=== PATIENT | male | born 1940 | race Caucasian/White ===

== ENCOUNTER → 2020-09-19 | Outpatient (CLI) | payer MEDICARE, BC ==
[~2020-09-19] MED LIST: ASPIRIN81 MG PO; AZELASTINE137 MCG/0.; CLARITIN10 M2 PO; FLONASE ALLER15.8 ML; HYDRALAZINE HCL50 MG PO; LANTUS100 UNIT/1 SQ; METOPROLOL TART25 MG PO; NORVASC10 MG PO; NOVOLOG FL100 UNIT/1 INJ; PEPCID20 MG PO; ZOLOFT25 MG PO
[2020-09-19 15:33] LABS: HEMOGLOBIN 11.9 gm/dl (14.0-17.5); RED BLOOD COUNT 4.16 M/UL (4.20-5.50); WHITE BLOOD COUNT 9.9 K/UL (4.5-11.0)
== END ==
LOC: US 13:51
PROVIDERS: Internal Medicine Nephrology
DX: N18.30 Chronic kidney disease, stage 3 unspecified (principal)
CPT/HCPCS: 36415; 80053; 82570; 83970; 84100; 84156; 85027

== ENCOUNTER → 2020-10-24 | Outpatient (CLI) | payer MEDICARE, BC ==
[2020-10-25 08:14] LABS: HBSAG SCREEN Negative (Negative); HCV ANTIBODY <0.1 (0.0-0.9)
[2020-10-25 09:15] LABS: CREATININE, URINE 45.7 mg/dL (Not Estab.)
[2020-10-25 12:15] LABS: COMPLEMENT C3, SERUM 116 mg/dL (82-167); COMPLEMENT C4, SERUM 35 mg/dL (12-38)
[2020-10-25 15:15] LABS: ANTI-DSDNA ANTIBODIES <1 IU/mL (0-9)
[2020-10-25 16:15] LABS: A/G RATIO 1.1 (0.7-1.7); ALPHA-1-GLOBULIN 0.3 g/dL (0.0-0.4); GAMMA GLOBULIN 0.6 g/dL (0.4-1.8); GLOBULIN, TOTAL 2.9 g/dL (2.2-3.9); IMMUNOGLOBULIN A, QN, SERUM 239 mg/dL (61-437); IMMUNOGLOBULIN G, QN, SERUM 605 mg/dL (603-1613); IMMUNOGLOBULIN M, QN, SERUM 44 mg/dL (15-143); M-SPIKE Not Observed g/dL (Not Observed); PROTEIN, TOTAL, SERUM 5.9 g/dL (6.0-8.5)
[2020-10-26 11:14] LABS: ANTIGLOMERULAR BM AB 2 units (0-20)
[2020-10-28 20:11] LABS: ANTIMYELOPEROXIDASE (MPO) ABS <9.0 U/mL (0.0-9.0); ANTIPROTEINASE 3 (PR-3) ABS <3.5 U/mL (0.0-3.5); ATYPICAL PANCA <1:20 titer (Neg:<1:20); CYTOPLASMIC (C-ANCA) <1:20 titer (Neg:<1:20); PERINUCLEAR (P-ANCA) <1:20 titer (Neg:<1:20)
== END ==
LOC: CT 12:02
PROVIDERS: Internal Medicine Nephrology
DX: N18.4 Chronic kidney disease, stage 4 (severe) (principal); N13.30 Unspecified hydronephrosis
CPT/HCPCS: 36415; 80053; 82043; 82570; 82784; 83520; 84155; 84156; 84165; 86038; 86160; 86162; 86225; 86256; 86334; 86803; 87340

== ENCOUNTER → 2020-10-30 | Outpatient (CLI) | payer MEDICARE, BC ==
[2020-10-30 13:28] LABS: URINE TOTAL PROTEIN 367 mg/dl
== END ==
LOC: LAB 12:04
PROVIDERS: Internal Medicine Nephrology
DX: N18.4 Chronic kidney disease, stage 4 (severe) (principal)
CPT/HCPCS: 84156

== ENCOUNTER 2020-12-09 19:03 | Inpatient (IN) | payer MEDICARE, BC ==
[~2020-12-09] VITALS: Ht 165.1 cm; Wt 120.7 kg
[2020-12-09 20:38] LABS: HEMOGLOBIN 10.2 gm/dl (14.0-17.5); RED BLOOD COUNT 3.7 M/UL (4.20-5.50); WHITE BLOOD COUNT 6.9 K/UL (4.5-11.0)
[2020-12-10 04:48] LABS: HEMOGLOBIN 10.5 gm/dl (14.0-17.5); RED BLOOD COUNT 3.69 M/UL (4.20-5.50); WHITE BLOOD COUNT 6.3 K/UL (4.5-11.0)
[2020-12-10] MEDS ORDERED: LANTUS100 UNIT/1 SQ (10:15)
[2020-12-10] MEDS ORDERED: NORVASC10 MG PO (10:15)
[2020-12-10] MEDS ORDERED: ASPIRIN81 MG PO (10:16)
[2020-12-10] MEDS ORDERED: PEPCID20 MG PO (10:17)
[2020-12-10] MEDS ORDERED: HYDRALAZINE HCL50 MG PO (10:17)
[2020-12-10] MEDS ORDERED: CLARITIN10 M2 PO (10:18)
[2020-12-10] MEDS ORDERED: METOPROLOL TART25 MG PO (10:19)
[2020-12-10] MEDS ORDERED: ZOLOFT25 MG PO (10:19)
[2020-12-10] MEDS ORDERED: AZELASTINE137 MCG/0. (19:08)
[2020-12-10] MEDS ORDERED: FLONASE ALLER15.8 ML (19:09)
[2020-12-10] MEDS ORDERED: NOVOLOG FL100 UNIT/1 INJ (19:10)
[2020-12-12 04:11] LABS: HEMOGLOBIN 10.2 gm/dl (14.0-17.5); RED BLOOD COUNT 3.65 M/UL (4.20-5.50)
[2020-12-12 04:12] LABS: WHITE BLOOD COUNT 11.1 K/UL (4.5-11.0)
--- NOTE | 2020-12-13 02:24 | NUR ---
PATIENT REFUSING TO USE BEDSIDE CAMMODE SO THAT HIS HFNC CAN REACH. PATIENT INFORMED THAT HIS OXYGEN DROPS WHEN HE AMBULATE ALL THE WAY TO THE BATHROOM. PATIENT ALERT AND OREINTED VERBALIZED UNDERSTANDING AND CONTINUES TO REFUSE TO USE BSC.
--- NOTE | 2020-12-13 08:20 | NUR ---
0750- OXYGEN SATURATION 85% ON ROOM AIR AT REST.
--- NOTE | 2020-12-14 14:13 | NUR ---
4775- RECEIVED CALL FROM TELE OF OXYGEN READING IN THE 70'S. PATIENT REMOVED ARIVO AT THIS TIME. AIRVO PLACED BACK ON AND OXYGEN SATURATIONS 91%
--- NOTE | 2020-12-14 14:14 | NUR ---
5243- RECEIVED CALL FROM TELE WITH OXYGEN READING IN THE 70S. PATIENT REMOVED AIRVO DEVICE. PLACED BACK ON AND OXYGEN SATURATION 90%
[2020-12-15 11:49] LABS: HEMOGLOBIN 11.5 gm/dl (14.0-17.5)
[2020-12-15 11:52] LABS: RED BLOOD COUNT 4.06 M/UL (4.20-5.50)
--- NOTE | 2020-12-15 12:59 | NUR ---
0874 PT MOVED TO ROOM 2115 FROM PCU FOR INTUBATION, PT VOICED UNDERSTANDING OF NEED TO BE PLACE ON VENT VERBAL PERMISSION OBTAINED., VERBAL CONSENT OBTAINED FOR PLACEMENT OF CVP PLACEMENT., PT INTUBATED WITH A 7.5 MOHAWK ET TUBE SECURED AT 24 AT THE LIP,OG TUBE PLACED, LARA INSERTED WITHOUT DIFFICULTY, CVP PLACED PER DR LOUIE PLACEMENT VERIFIED VIA CHEST XRAY AND AUSCULTATION PT JOSE L WELL
[2020-12-16 05:23] LABS: HEMOGLOBIN 10.7 gm/dl (14.0-17.5); RED BLOOD COUNT 3.8 M/UL (4.20-5.50); WHITE BLOOD COUNT 13.6 K/UL (4.5-11.0)
--- NOTE | 2020-12-16 10:18 | NUR ---
CALLED DR VAUGHN THIS AM AND MADE HIM AWARE OF BUN AND CREAT HE STATES HE WILL BE HERE TO SEE PT LATER NO NEW ORDERS AT THIS THIME STATES HE HAS CHRONIC KIDNEY ISSUES
[2020-12-17 04:33] LABS: WHITE BLOOD COUNT 13.5 K/UL (4.5-11.0)
[2020-12-17 04:34] LABS: HEMOGLOBIN 8.7 gm/dl (14.0-17.5); RED BLOOD COUNT 3.07 M/UL (4.20-5.50)
[2020-12-18 03:57] LABS: RED BLOOD COUNT 2.8 M/UL (4.20-5.50); WHITE BLOOD COUNT 14.3 K/UL (4.5-11.0)
[2020-12-18 08:13] LABS: HBSAG SCREEN Negative (Negative); HEP A AB, IGM Negative (Negative); HEP B CORE AB, IGM Negative (Negative); HEP C VIRUS AB <0.1 (0.0-0.9)
[2020-12-19 05:37] LABS: HEMOGLOBIN 7.9 gm/dl (14.0-17.5); RED BLOOD COUNT 2.77 M/UL (4.20-5.50); WHITE BLOOD COUNT 16.5 K/UL (4.5-11.0)
[2020-12-19 08:24] LABS: HEMOGLOBIN 7.9 gm/dl (14.0-17.5); RED BLOOD COUNT 2.77 M/UL (4.20-5.50); WHITE BLOOD COUNT 18.1 K/UL (4.5-11.0)
[2020-12-20 10:03] LABS: WHITE BLOOD COUNT 21.9 K/UL (4.5-11.0)
[2020-12-20 10:04] LABS: RED BLOOD COUNT 3.21 M/UL (4.20-5.50)
[2020-12-21 06:28] LABS: HEMOGLOBIN 8.1 gm/dl (14.0-17.5); RED BLOOD COUNT 2.95 M/UL (4.20-5.50)
[2020-12-21 06:37] LABS: WHITE BLOOD COUNT 16.4 K/UL (4.5-11.0)
[2020-12-23 05:25] LABS: HEMOGLOBIN 8.8 gm/dl (14.0-17.5); RED BLOOD COUNT 3.16 M/UL (4.20-5.50); WHITE BLOOD COUNT 17.7 K/UL (4.5-11.0)
[2020-12-24 05:57] LABS: HEMOGLOBIN 9.4 gm/dl (14.0-17.5); RED BLOOD COUNT 3.3 M/UL (4.20-5.50)
[2020-12-25 07:51] LABS: HEMOGLOBIN 8.2 gm/dl (14.0-17.5)
[2020-12-25 07:52] LABS: RED BLOOD COUNT 2.92 M/UL (4.20-5.50); WHITE BLOOD COUNT 12.6 K/UL (4.5-11.0)
[2020-12-26 07:54] LABS: HEMOGLOBIN 10.2 gm/dl (14.0-17.5); RED BLOOD COUNT 3.76 M/UL (4.20-5.50); WHITE BLOOD COUNT 18.6 K/UL (4.5-11.0)
[2020-12-27 08:12] LABS: HEMOGLOBIN 8.3 gm/dl (14.0-17.5); WHITE BLOOD COUNT 22.9 K/UL (4.5-11.0)
[2020-12-27 08:18] LABS: RED BLOOD COUNT 3.03 M/UL (4.20-5.50)
--- NOTE | 2020-12-27 08:39 | NUR ---
0721: WHILE AT BEDSIDE THE PATIENT WENT BRADYCARDIC, PULSE WAS PRESENT, THE CRASH CART WAS PULLED INSIDE THE ROOM AND THE PATIENT WAS GIVEN ATROPINE PER DR COLINDRES AT BEDSIDE, THE PATIENT WAS GIVEN EPI, AND WENT INTO [facility] NO PULSE, CPR WAS STARTED, SEE CODE SHEET.
[2020-12-29 10:19] LABS: HEMOGLOBIN 7.5 gm/dl (14.0-17.5); WHITE BLOOD COUNT 22.7 K/UL (4.5-11.0)
[2020-12-29 10:39] LABS: RED BLOOD COUNT 2.65 M/UL (4.20-5.50)
[2020-12-30 05:54] LABS: RED BLOOD COUNT 2.38 M/UL (4.20-5.50); WHITE BLOOD COUNT 14.9 K/UL (4.5-11.0)
[2020-12-30 05:55] LABS: HEMOGLOBIN 6.7 gm/dl (14.0-17.5)
[2020-12-31 04:48] LABS: HEMOGLOBIN 7.5 gm/dl (14.0-17.5); WHITE BLOOD COUNT 12.9 K/UL (4.5-11.0)
[2020-12-31 04:58] LABS: RED BLOOD COUNT 2.65 M/UL (4.20-5.50)
[2020-12-31 07:42] LABS: HEMOGLOBIN 7.9 gm/dl (14.0-17.5); RED BLOOD COUNT 2.84 M/UL (4.20-5.50)
[2020-12-31 07:49] LABS: WHITE BLOOD COUNT 17.5 K/UL (4.5-11.0)
[2020-12-31 16:51] LABS: HEMOGLOBIN 8.8 gm/dl (14.0-17.5)
[2021-01-01 03:56] LABS: RED BLOOD COUNT 2.03 M/UL (4.20-5.50); WHITE BLOOD COUNT 12.2 K/UL (4.5-11.0)
[2021-01-01 03:58] LABS: HEMOGLOBIN 5.9 gm/dl (14.0-17.5)
--- NOTE | 2021-01-02 03:09 | NUR ---
01/01/211914 - NOTIFIED JAGJIT THAT FAMILY WISHES TO WITHDRAW CARE IN THE AM. OK TO WITHDRAW TREATMENT WHEN FAMILY IS READY PER JAGJIT REP WILL. CALL WITH CARDIAC TIME OF PER JAGJIT'S REQUEST.
[2021-01-02 07:11] LABS: WHITE BLOOD COUNT 12.9 K/UL (4.5-11.0)
[2021-01-02 07:29] LABS: HEMOGLOBIN 8.3 gm/dl (14.0-17.5); RED BLOOD COUNT 2.88 M/UL (4.20-5.50)
== END 2021-01-03 13:38 | disposition expired | DRG 207 ==
LOC: ER1 19:03 → CDU 21:02 → PROG CARE 21:02 → CCU 21:02 → PROG CARE 12-10 10:31 → M/S 12-12 14:35 → PROG CARE 12-14 14:23 → CCU 12-15 08:38
PROVIDERS: Emergency Medicine; Hospitalist; Internal Medicine; Internal Medicine Nephrology; Internal Medicine Pulmonary Disease; Surgery; ADMIT Internal Medicine
PROC: 3E0333Z Introduction of Anti-inflammatory into Peripheral Vein, Percutaneous Approach (ICD-10-PCS; 2020-12-09)
PROC: 8E0ZXY6 Isolation (ICD-10-PCS; 2020-12-10)
PROC: 5A0945A Assistance with Respiratory Ventilation, 24-96 Consecutive Hours, High Flow/Velocity Cannula (ICD-10-PCS; 2020-12-12)
PROC: 5A09357 Assistance with Respiratory Ventilation, Less than 24 Consecutive Hours, Continuous Positive Airway Pressure (ICD-10-PCS; 2020-12-14)
PROC: 5A1955Z Respiratory Ventilation, Greater than 96 Consecutive Hours (ICD-10-PCS; 2020-12-15)
PROC: 3E033XZ Introduction of Vasopressor into Peripheral Vein, Percutaneous Approach (ICD-10-PCS; 2020-12-15)
PROC: XW033H5 Introduction of Tocilizumab into Peripheral Vein, Percutaneous Approach, New Technology Group 5 (ICD-10-PCS; 2020-12-15)
PROC: 0BH17EZ Insertion of Endotracheal Airway into Trachea, Via Natural or Artificial Opening (ICD-10-PCS; 2020-12-15)
PROC: 02HV33Z Insertion of Infusion Device into Superior Vena Cava, Percutaneous Approach (ICD-10-PCS; 2020-12-15)
PROC: B548ZZA Ultrasonography of Superior Vena Cava, Guidance (ICD-10-PCS; 2020-12-15)
PROC: 5A1D70Z Performance of Urinary Filtration, Intermittent, Less than 6 Hours Per Day (ICD-10-PCS; principal; 2020-12-18)
PROC: 5A1D70Z Performance of Urinary Filtration, Intermittent, Less than 6 Hours Per Day (ICD-10-PCS; 2020-12-19)
PROC: 5A1D70Z Performance of Urinary Filtration, Intermittent, Less than 6 Hours Per Day (ICD-10-PCS; 2020-12-20)
PROC: 5A1D70Z Performance of Urinary Filtration, Intermittent, Less than 6 Hours Per Day (ICD-10-PCS; 2020-12-21)
PROC: 5A1D70Z Performance of Urinary Filtration, Intermittent, Less than 6 Hours Per Day (ICD-10-PCS; 2020-12-24)
PROC: 0DH63UZ Insertion of Feeding Device into Stomach, Percutaneous Approach (ICD-10-PCS; 2020-12-28)
PROC: 3E0G76Z Introduction of Nutritional Substance into Upper GI, Via Natural or Artificial Opening (ICD-10-PCS; 2020-12-28)
PROC: 5A1D70Z Performance of Urinary Filtration, Intermittent, Less than 6 Hours Per Day (ICD-10-PCS; 2020-12-29)
PROC: 5A12012 Performance of Cardiac Output, Single, Manual (ICD-10-PCS; 2020-12-29)
PROC: 5A1D70Z Performance of Urinary Filtration, Intermittent, Less than 6 Hours Per Day (ICD-10-PCS; 2020-12-30)
PROC: 5A1D70Z Performance of Urinary Filtration, Intermittent, Less than 6 Hours Per Day (ICD-10-PCS; 2020-12-31)
PROC: 5A1D70Z Performance of Urinary Filtration, Intermittent, Less than 6 Hours Per Day (ICD-10-PCS; 2021-01-01)
PROC: 30233N1 Transfusion of Nonautologous Red Blood Cells into Peripheral Vein, Percutaneous Approach (ICD-10-PCS; 2021-01-01)
DX: U07.1 COVID-19 (principal); J12.82 Pneumonia due to coronavirus disease 2019; Z66 Do not resuscitate; Z51.5 Encounter for palliative care; R65.21 Severe sepsis with septic shock; J80 Acute respiratory distress syndrome; G93.41 Metabolic encephalopathy; N17.0 Acute kidney failure with tubular necrosis; A41.89 Other specified sepsis; I46.8 Cardiac arrest due to other underlying condition; R57.8 Other shock; N17.9 Acute kidney failure, unspecified; G93.1 Anoxic brain damage, not elsewhere classified; J44.0 Chronic obstructive pulmonary disease with (acute) lower respiratory infection; E87.1 Hypo-osmolality and hyponatremia; I47.1 Supraventricular tachycardia; E87.4 Mixed disorder of acid-base balance; N18.4 Chronic kidney disease, stage 4 (severe); I12.9 Hypertensive chronic kidney disease with stage 1 through stage 4 chronic kidney disease, or unspecified chronic kidney disease; E66.01 Morbid (severe) obesity due to excess calories; I16.0 Hypertensive urgency; L89.156 Pressure-induced deep tissue damage of sacral region; E11.22 Type 2 diabetes mellitus with diabetic chronic kidney disease; F17.210 Nicotine dependence, cigarettes, uncomplicated; D63.1 Anemia in chronic kidney disease; E11.65 Type 2 diabetes mellitus with hyperglycemia; D69.6 Thrombocytopenia, unspecified; E87.5 Hyperkalemia; E83.51 Hypocalcemia; L89.816 Pressure-induced deep tissue damage of head; D72.828 Other elevated white blood cell count; T38.0X5A Adverse effect of glucocorticoids and synthetic analogues, initial encounter; E83.39 Other disorders of phosphorus metabolism; K59.00 Constipation, unspecified; Z79.4 Long term (current) use of insulin; Z98.1 Arthrodesis status; Z87.81 Personal history of (healed) traumatic fracture; Z88.6 Allergy status to analgesic agent; Z99.2 Dependence on renal dialysis; Z68.35 Body mass index [BMI] 35.0-35.9, adult; Z23 Encounter for immunization
CPT/HCPCS: 31500; 36415; 36430; 36600; 70450; 71045; 74018; 80048; 80053; 80074; 80202; 81001; 82652; 82728; 82803; 82962; 83605; 83615; 83735; 83880; 83970; 84100; 85014; 85018; 85025; 85027; 85379; 85384; 86140; 86850; 86900; 86901; 86920; 87040; 90937; 92950; 93005; 93242; 94002; 94003; 94640; 94660; 94664; 94760; 96374; 97161; 99285; A6212; C1752; C9113; J0171; J0360; J0461; J0610; J1100; J1205; J1265; J1644; J1940; J2060; J2185; J2270; J2370; J2405; J2704; J3010; J3370; J7030; J7040; J7050; J7070; P9016; P9047; Q0249; U0002